=== PATIENT | male | born 1995 | race Caucasian/White ===

== ENCOUNTER 2021-12-21 16:28 | Emergency (ER) | payer SELFPAY ==
[~2021-12-21] VITALS: Ht 172.7 cm; Wt 82.0 kg
[2021-12-21] MEDS ORDERED: LORA-250 MT (19:02)
[2021-12-21 19:07] VITALS: BP 155/99
== END 2021-12-21 19:07 | disposition home or self-care (01) ==
LOC: ER 16:28
DX: F41.1 Generalized anxiety disorder (principal)
CPT/HCPCS: 99283